=== PATIENT | female | born 1990 | race Caucasian/White ===

== ENCOUNTER 2022-01-15 20:04 | Emergency (ER) | payer BC, OTHER ==
[2022-01-15 20:55] LABS: ANION GAP 9.2 meq/L (7-15); CHLORIDE,CL 103 mmol/L (98-107); ESTIMATED GFR 119 mL/min (>=60); SODIUM,NA 141 mmol/L (136-145)
[2022-01-15] MEDS: Ketorolac 30 MG/ML SDV IM ONE (21:28)
== END 2022-01-15 21:40 | disposition home or self-care (01) ==
LOC: LL.ED 20:04
DX: N83.202 Unspecified ovarian cyst, left side (principal); F17.210 Nicotine dependence, cigarettes, uncomplicated; Z88.2 Allergy status to sulfonamides; Z88.8 Allergy status to other drugs, medicaments and biological substances
CPT/HCPCS: 36415; 80053; 84703; 85025; 86140; 96372; 99283; J1885

== ENCOUNTER 2025-02-06 05:51 | Emergency (ER) | payer MEDICAID ==
[2025-02-06] MEDS ORDERED: Sodium Chloride 0.9% 10 ML Syringe FLUSH PRN (06:25)
[2025-02-06] MEDS ORDERED: Ondansetron 4 MG Tab.DIS PO ONE (06:41)
[2025-02-06] MEDS: Iopamidol 612 MG/ML 100 ML Bottle IVPUSH ONE (06:59)
== END 2025-02-06 07:07 | disposition home or self-care (01) ==
LOC: LL.ED 05:51
DX: T14.90XA Injury, unspecified, initial encounter (principal); F17.200 Nicotine dependence, unspecified, uncomplicated; Z88.2 Allergy status to sulfonamides; Z88.8 Allergy status to other drugs, medicaments and biological substances; Y04.0XXA Assault by unarmed brawl or fight, initial encounter
CPT/HCPCS: 71260; 74177; 99284; A9270-GY; Q9967